=== PATIENT | male | born 1990 | race Two or more races ===

== ENCOUNTER 2018-06-09 08:52 | Inpatient (IN) | payer MEDICAID ==
[~2018-06-09] VITALS: Ht 188 cm; Wt 113.4 kg
[2018-06-09] MEDS ORDERED: HYDROMORPHONE INJ 2 MG/ML DISP.SYRIN ONE ×2 (08:58→11:02)
[2018-06-09] MEDS ORDERED: PROPOFOL 0 ML IV ONE (08:58)
[2018-06-09] MEDS ORDERED: HYDROMORPHONE INJ 0.5 MG/0.5 ML SYRINGE IV ONE ×2 (09:00→11:00)
[2018-06-09] MEDS ORDERED: PROPOFOL 200 MG/20 ML VIAL IV ONE (09:00)
--- NOTE | 2018-06-09 09:00 | NUR ---
IV ACCESS STARTED. BLOOD DRAWN FOR LABS. MEDICATED ORDERED.
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
--- NOTE | 2018-06-09 09:07 | NUR ---
NAVA AT BS.
--- NOTE | 2018-06-09 09:10 | NUR ---
AT TO DISCUSS TO PT ABOUT THE PROCEDURE. CONSENT SIGNED FOR CLOSED REDUCTION UNDER MODERATE SEDATION OF LEFT ANKLE. VERBALIZES UNDERSTANDING OF THE PROCEDURE. ALL QUESTIONS ANSWERED.
[2018-06-09] MEDS ORDERED: PROPOFOL 20 ML IV ONE (09:16)
--- NOTE | 2018-06-09 09:40 | NUR ---
NAVA AT BS.
--- NOTE | 2018-06-09 10:04 | NUR ---
PT PLACED ON O2 FOR MODERATE SEDATION. WAITED AT BED SIDE DURING PROCEDURE. PERFORMED PROCEDURE. PT STABLE. NO DISTRESS NOTED.
--- NOTE | 2018-06-09 10:12 | NUR ---
CALLED [facility] [phone] THANKS SAROJ
--- NOTE | 2018-06-09 11:05 | NUR ---
MEDICATED PT ORDERED
--- NOTE | 2018-06-09 11:06 | NUR ---
BRAD GONG CALLED FOR POSSIBLE TRAUMA TX,DR HART SPOKE WITH DR RICHARDS
[2018-06-09 11:49] LABS: BASOPHILS % (AUTO) 0.1 % (0.0-2.0); EOSINOPHILS % (AUTO) 0.5 % (0.0-6.0); HEMATOCRIT 42 % (39-51); HEMOGLOBIN 13.8 g/dL (13.5-17.5); LYMPHOCYTES # (AUTO) 2.4 /CMM (0.8-4.8); LYMPHOCYTES % (AUTO) 24.2 % (20.0-44.0); MEAN CORPUSCULAR HEMOGLOBIN 29 PG (26.0-33.0); MEAN CORPUSCULAR HGB CONC 33 g/dl (31.0-36.0); MEAN CORPUSCULAR VOLUME 86 fL (80-96); MONOCYTES # (AUTO) 0.6 /CMM (0.1-1.30); MONOCYTES % (AUTO) 6.2 % (2.0-12.0); NEUTROPHILS # (AUTO) 6.9 /CMM (1.8-8.9); PLATELET COUNT (AUTO) 251 /CMM (150-450); RDW COEFFICIENT OF VARIATION 12.3 (11.5-15.0); RED BLOOD CELL COUNT(AUTO) 4.84 MIL/uL (4.5-6.0); WHITE BLOOD COUNT (AUTO) 9.9 K/uL (4.3-11.0)
[2018-06-09 12:00] VITALS: BP 146/86
[2018-06-09 12:12] LABS: INR 0.95 (0.85-1.15)
--- NOTE | 2018-06-09 12:47 | NUR ---
REPORT GIVEN TO JAMES MALDONADO FOR MS ROOM 205-1.
[2018-06-09 13:00] VITALS: BP 146/86
[2018-06-09] MEDS ORDERED: hydrALAZINE HCL 25 MG TABLET PO PRN (13:00)
[2018-06-09] MEDS ORDERED: MAGNESIUM HYDROXIDE 30 ML UDC PO PRN (13:00)
[2018-06-09] MEDS ORDERED: MORPHINE SULFATE INJ 2 MG/ML DISP.SYRIN IV PRN (13:00)
[2018-06-09] MEDS ORDERED: Z GUARD REMEDY 2 OZ OINT TP PRN (13:00)
[2018-06-09] MEDS ORDERED: ENALAPRILAT INJ (1.25 MG/ML) 1.25 MG/ML VIAL IV PRN (13:00)
[2018-06-09] MEDS ORDERED: MAG HYDROX/AL HYDROX/SIMETH 30 ML UDC PO PRN (13:00)
[2018-06-09] MEDS ORDERED: ACETAMINOPHEN 325 MG TABLET PO PRN (13:00)
[2018-06-09] MEDS ORDERED: ONDANSETRON HCL/PF 4 MG/2 ML VIAL IVP PRN (13:00)
[2018-06-09] MEDS ORDERED: ZOLPIDEM TARTRATE 5 MG TABLET PO PRN (13:00)
--- NOTE | 2018-06-09 13:10 | NUR ---
RN NOTES/ADMISSION PT RECEIVED FROM ER VIA GURNEY, ASSISTED WITH TRANSFER TO BED. PT AWAKE ALERT AND VERBALLY RESPONSIVE, ABLE TO MAKE NEEDS KNOWN STATES PT LEVEL IS 2/10 AND TOLERABLE, WILL ADMINISTER PAIN MEDICATION ORDERED. RESPIRATIONS EVEN AND UNLABORED, IV ACCESS TO LAC PATENT AND INTACT NO REDNESS OR INFILTRATION NOTED. PT ORIENTED TO ROOM AND UNIT WITH NOTED VERBAL UNDERSTANDING. PT NPO EXCEPT MEDS AT THIS TIME FOR POSSIBLE SURGICAL PROCEDURE. SAFETY MEASURES IN PLACE, CALL LIGHT WITHIN EASY REACH WILL CONTINUE TO MONITOR. DR. MURRAY AWARE OF PT'S ARRIVAL, WILL CONTINUE TO CARRY OUT ADMITTING ORDERS
[2018-06-09 13:38] LABS: CALCIUM, SERUM 8.9 mg/dL (8.5-10.1); CREATININE 1.1 mg/dL (0.6-1.3); POTASSIUM 3.6 mmol/L (3.5-5.1)
[2018-06-09 13:44] LABS: BILIRUBIN,DIRECT 0.1 mg/dL (0.0-0.2); BILIRUBIN,TOTAL 0.4 mg/dL (0.2-1.0); TOTAL PROTEIN, SERUM 8.1 g/dL (6.4-8.2)
[2018-06-09] MEDS: HYDROCODONE/APAP 5/325MG 1 EACH TABLET PO PRN (14:31)
[2018-06-09] MEDS: IV D5/0.45 NACL 1,000 ML IV PRN (14:32)
--- NOTE | 2018-06-09 15:10 | NUR ---
RN NOTES/ORTHO FOLLOW UP PER YANNI BUENO PT TO HAVE POSSIBLE SURGICAL TOMORROW WILL AWAIT FURTHER ORDERS
--- NOTE | 2018-06-09 15:30 | NUR ---
RN NOTES NOTIFIED DR. MURRAY THAT SURGICAL PROCEDURE WONT BE UNTIL TOMORROW, PT OKAY TO HAVE MEALS, NPO POST MIDNIGHT, WILL CONTINUE TO MONITOR
[2018-06-09 16:00] VITALS: BP 138/84
--- NOTE | 2018-06-09 17:41 | NUR ---
RN NOTES PER PT, HAVING SEVERE PAIN NORCO AND MORPHINE ADMINISTERED PRN ORDERED, EXPLAINED PAIN MEDICATION ORDERS AND ADMINISTRATION WITH PT AND EDUCATION ON USE AND SIDE EFFECTS, MADE DR. MURRAY AWARE, WILL CONTINUE TO ADMINISTER MEDICATION AT APPROPRIATE PRN TIMES AND CONTINUE TO MONITOR, WILL AWAIT ANY FURTHER ORDERS
--- NOTE | 2018-06-09 18:20 | NUR ---
RN CLOSING NOTES PT AWAKE ALERT AND VERBALLY RESPONSIVE, PAIN MANAGEMENT CONTINUED, WILL ADMINISTER PAIN MEDICATION PRN ORDERED. RESPIRATIONS EVEN AND UNLABORED, IV ACCESS TO LAC 18 G PATENT AND INTACT NO REDNESS OR INFILTRATION NOTED IV FLUIDS ORDERED, TOLERATED WELL. PT ORIENTED TO ROOM AND UNIT WITH NOTED VERBAL UNDERSTANDING. PT TO BE NPO AFTER MIDNIGHT. SAFETY MEASURES IN PLACE, CALL LIGHT WITHIN EASY REACH WILL CONTINUE TO MONITOR AND ENDORSE TO NEXT SHIFT FOR CONTINUITY OF CARE
[2018-06-09] MEDS: MORPHINE SULFATE INJ 2 MG/ML DISP.SYRIN IV PRN ×2 (18:39→21:27)
--- NOTE | 2018-06-09 19:21 | NUR ---
MS/RN OPENING NOTES PATIENT IN BED, RESTING COMFORTABLY IN BED, FAMILY AT BEDSIDE, PAIN WAS GIVEN FEW MINUTES AGO, NO GRIMACE AND GUARDING OBSERVED, HAD DINNER BROUGHT BY FAMILY AND WILL BE PREPARING FOR SX SADE FOR FX OF LEFT ANKLE, SKIN WARM TO TOUCH, USES URINAL, CALL LIGHTS WITHIN REACH, DISCUSSED PLAN OF CARE. BED IN LOCK POSITION WILL MONITOR.
--- NOTE | 2018-06-09 19:30 | NUR ---
MS/RN NOTES RECEIVED UPDATE FROM MD GREER REGARDING PATIENT SURGERY AND NEED MD DONNA FOR EVALUATION OF THE ANKLE THAT IS SWOLLEN, PER MD FRACTURE IS COMPLICATED AND DO NOT NEED NPO ORDER AT THIS TIME.FAMILY MADE AWARE.
[2018-06-09 19:40] VITALS: BP 129/87
[2018-06-09 20:00] VITALS: BP 129/87
--- NOTE | 2018-06-09 21:28 | NUR ---
MS/RN NOTES PAIN REPORTED PAIN 10/10 IN LEFT FOOT/ANKLE, ALERT, ORIENTED X3, ABLE TO VERBALIZE NEEDS. OBSERVE GUARDING AND GRIMACE, IV PAIN MEDICATION MORPHINE 4MG/2ML TO ADMINISTER. WILL MONITOR EFFECTIVENESS.
[2018-06-10] MEDS: MORPHINE SULFATE INJ 2 MG/ML DISP.SYRIN IV PRN ×6 (01:46→23:22)
--- NOTE | 2018-06-10 01:56 | NUR ---
MS/RN NOTES PATIENT REQUESTED FOR PAIN MEDICATION, AWAKEN FROM SLEEP REPORTED PAIN ON LEFT ANKLE 9/10. PAIN MEDICATION ADMINISTERED VIA IV MORPHINE 2MG/ML, MONITOR PAIN EFFECTIVENESS AND RELIEF.
[2018-06-10] MEDS: IV D5/0.45 NACL 1,000 ML IV PRN (03:04)
--- NOTE | 2018-06-10 06:15 | NUR ---
MS/RN NOTES PATIENT AWAKEN FROM SLEEP AND REPORTED PAIN OF 9/10 ON HIS LEFT ANKLE, ASSIST WITH REPOSITION FOR COMFORT, PAIN MEDICATION IV MORPHINE 2MG/ML. WILL MONITOR.
[2018-06-10 06:18] LABS: BASOPHILS % (AUTO) 0.3 % (0.0-2.0); EOSINOPHILS % (AUTO) 0.2 % (0.0-6.0); HEMATOCRIT 40 % (39-51); HEMOGLOBIN 13.7 g/dL (13.5-17.5); LYMPHOCYTES # (AUTO) 2.3 /CMM (0.8-4.8); LYMPHOCYTES % (AUTO) 21.5 % (20.0-44.0); MEAN CORPUSCULAR HEMOGLOBIN 30 PG (26.0-33.0); MEAN CORPUSCULAR HGB CONC 34 g/dl (31.0-36.0); MEAN CORPUSCULAR VOLUME 88 fL (80-96); MONOCYTES # (AUTO) 0.7 /CMM (0.1-1.30); MONOCYTES % (AUTO) 6.8 % (2.0-12.0); NEUTROPHILS # (AUTO) 7.5 /CMM (1.8-8.9); NEUTROPHILS % (AUTO) 71.2 % (43.0-81.0); PLATELET COUNT (AUTO) 233 /CMM (150-450); RDW COEFFICIENT OF VARIATION 12.8 (11.5-15.0); RED BLOOD CELL COUNT(AUTO) 4.59 MIL/uL (4.5-6.0); WHITE BLOOD COUNT (AUTO) 10.6 K/uL (4.3-11.0)
[2018-06-10 06:45] LABS: CALCIUM, SERUM 8.6 mg/dL (8.5-10.1); CREATININE 0.7 mg/dL (0.6-1.3); MAGNESIUM 2.1 mg/dL (1.8-2.4); PHOSPHORUS 3.6 mg/dL (2.5-4.9); POTASSIUM 3.3 mmol/L (3.5-5.1)
--- NOTE | 2018-06-10 06:54 | NUR ---
205-2 MS/RN NOTES PATIENT ALERT, ORIENTED, ON PAIN MANAGMENT DUE TO FRACTURE ON LEFT ANKLE, KEEP COMFORTBALE, ABLE TO SLEEP INTERMITTENTLY , RESPIRATIONS EVEN AND UNLABORED, SKIN WARM TO TOUCH, VITAL SIGNS CHECK AND NOTED EVERY PAIN MEDICATION GIVEN, CALL LIGHTS WITHIN REACH, BED IN LOCK POSITION, WILL ENDORSE TO AM RN FOR NAT.
--- NOTE | 2018-06-10 07:15 | NUR ---
RN OPENING NOTES PT AWAKE ALERT AND VERBALLY RESPONSIVE, PAIN MANAGEMENT CONTINUED, WILL ADMINISTER PAIN MEDICATION PRN ORDERED. RESPIRATIONS EVEN AND UNLABORED, IV ACCESS TO LAC 18 G PATENT AND INTACT NO REDNESS OR INFILTRATION NOTED IV FLUIDS ORDERED, TOLERATED WELL. PT ORIENTED TO ROOM AND UNIT WITH NOTED VERBAL UNDERSTANDING. TO EVALUATE PT SAFETY MEASURES IN PLACE, CALL LIGHT WITHIN EASY REACH WILL CONTINUE TO MONITOR
[2018-06-10 08:00] VITALS: BP 136/77
[2018-06-10] MEDS ORDERED: POTASSIUM CHLORIDE 20 MEQ TAB.PRT.SR PO ONE (11:00)
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
[2018-06-10 16:00] VITALS: BP 135/79
--- NOTE | 2018-06-10 18:50 | NUR ---
RN CLOSING NOTES PT AWAKE ALERT AND VERBALLY RESPONSIVE, PAIN MANAGEMENT CONTINUED, WILL ADMINISTER PAIN MEDICATION PRN ORDERED. RESPIRATIONS EVEN AND UNLABORED, IV ACCESS TO LAC 18 G PATENT AND INTACT SL NO REDNESS OR INFILTRATION NOTED. PT ORIENTED TO ROOM AND UNIT WITH NOTED VERBAL UNDERSTANDING.PER PT NEEDS TO HAVE REDUCED SWELLING OF LEG PRIOR TO SURGICAL INTERVENTION, PT AWARE, LLE ELEVATED ON PILLOW, ICED AND PRN PAIN MEDICATION FOR PAIN RELIEF. SAFETY MEASURES IN PLACE, CALL LIGHT WITHIN EASY REACH WILL CONTINUE TO MONITOR AND ENDORSED TO NEXT SHIFT FOR CONTINUITY OF CARE
--- NOTE | 2018-06-10 19:30 | NUR ---
MS RN NOTES RECEIVED ON BED A/O X4,BREATHING NORMAL.VISITOR AT BEDSIDE.SALINE LOCK LEFT AC INTACT AND PATENT.S/P LEFT ANKLE CLOSED REDUCTION IN ER,SPLINT IN USED WRAPPED WITH BROWN ELASTIC BANDAGE.DENIES PAIN AT THE MOMENT.CALL LIGHT IN REACH,NEEDS ANTICIPATED.
[2018-06-10 20:00] VITALS: BP 150/87
--- NOTE | 2018-06-10 23:22 | NUR ---
MS RN NOTES PAIN MANAGEMENT C/O PAIN VIA LEFT ANKLE 10/10 ON PAIN SCALE.MEDICATED WITH MORPHINE 4MG IV ORDERED.ELEVATE LEFT LEG ON PILLOWS.
[2018-06-11] MEDS: MORPHINE SULFATE INJ 2 MG/ML DISP.SYRIN IV PRN (02:26)
--- NOTE | 2018-06-11 02:26 | NUR ---
MS RN NOTES PAIN MANAGEMENT C/O PAIN ON LEFT LOWER LEG,MEDICATED WITH MORPHINE 4MG IP ORDERED
--- NOTE | 2018-06-11 03:00 | NUR ---
MS RN NOTES SOUND ASLEEP,PT WARM AND COMFORTABLE.
[2018-06-11] MEDS: HYDROCODONE/APAP 5/325MG 1 EACH TABLET PO PRN ×2 (05:13→13:09)
--- NOTE | 2018-06-11 05:13 | NUR ---
MS RN NOTES PAIN MANAGEMENT AWAKE,C/O LEFT ANK;E PAIN 6/10 ON PAIN SCALE,NORCO 5/325MG,1 TAB PO GIVEN PER PATIENT REQUEST.
[2018-06-11] MEDS ORDERED: MORPHINE SULFATE INJ 4 MG/ML DISP.SYRIN IV PRN (07:00)
--- NOTE | 2018-06-11 07:29 | NUR ---
MS RN NOTES FAIRLY RESTED AT NIGHT,LEFT LOWER LEG KEPT ELEVATED ON PILLOWS.NON WEIGHT BEARING LEFT LOWER LEG,SALINE LOCK LEFT AC INTACT ,PATENT.IN NO ACUTE DISTRESS.ENDORSED TO ONEYDA MALDONADO STABLE CONDITION.
--- NOTE | 2018-06-11 07:30 | NUR ---
MS RN OPENING NOTES PATIENT RECEIVED IN BED AWAKE, ALERT AND ORIENTED 4. VERBALLY RESPONSIVE WITH C/O PAIN ON LEFT ANKLE WITH PAIN SCALE OF 10/10, PRN MORPHINE SULFATE 4MG/1ML IVP ADMINISTERED ORDERED. ON ROOM AIR, RESPIRATIONS EVEN AND UNLABORED. IV ACCESS ON LAC G#18 PATENT AND INTACT, FLUSHES WELL. SAFETY MEASURES IN PLACE. BED IN LOW/LOCKED POSITION. CALL LIGHT WITHIN EASY REACH. WILL CONTINUE TO MONITOR
[2018-06-11 08:00] VITALS: BP 141/88
[2018-06-11] MEDS: HYDROMORPHONE INJ 2 MG/ML DISP.SYRIN IV PRN ×2 (11:16→16:36)
--- NOTE | 2018-06-11 11:21 | NUR ---
RN NOTES PT SEEN AND EVALUATED BY DR NOLAN. MORPHINE SULFATE 4MG IV D/C'D AND CHANGED TO DILAUDID 1MG/0.5ML Q4HRS PRN. PATIENT C/O PAIN ON HIS LEFT ANKLE, 10/10 SCALE. PRN DILAUDID 1MG/0.5ML IVP ADMINISTERED. WILL CONTINUE TO MONITOR.
--- NOTE | 2018-06-11 13:10 | NUR ---
ERICA NOTES PT C/O PAIN ON LEFT KNEE, 7/10 SCALE, PRN NAHUN 5/325 TAB GIVEN AT 1405 ORDERED. WILL CONTINUE TO MONITOR Addendum: 06/11/18 at 1323 by ABRAM COE RN ERROR: NORCO NOT ADMINISTERED AT 1405 BUT 1305.
--- NOTE | 2018-06-11 13:21 | NUR ---
RN NOTES PATIENT FOR LEFT ANKLE OPEN REDUCTION INTERNAL FIXATION TOMORROW, 06/12/2018. EXPLAINED PROCEDURE TO PT AND VERBALIZED UNDERSTANDING. ALL REQUIRED CONSENTS SIGNED AND FILED ON CHART.
--- NOTE | 2018-06-11 13:45 | NUR ---
RN NOTES RECEIVED A CALL FROM WATCH GUARD GATE LUIS ENRIQUE OF [facility] AND INFORMED THAT PT WILL BE TRANSFERRED TO [facility], HE SAID THAT HE TALKED TO OUR SANDY CORRAL ALREADY. I CALLED AND VERIFIED TO SANDY CORRAL AND SAID YES, THE PT WILL BE TRANSFERRED TO [facility], SHE ALSO WENT AND SPOKE TO PT REGARDING THE TRANSFERRED AND PT VERBALIZED UNDERSTANDING. SANDY CORRAL WILL CALL OR LET ME KNOW ONCE EVERY THING IS FINALIZED.
[2018-06-11 16:00] VITALS: BP 129/85
--- NOTE | 2018-06-11 16:40 | NUR ---
RN NOTES/ PAIN MANAGEMENT PATIENT CALLED AND COMPLAINTS OF PAIN ON HIS LEFT ANKLE WITH PAIN SCALE OF 10/10. PRN DILAUDID 1MG/0.5ML IVP ADMINISTERED AT 1636. WILL CONTINUE TO MONITOR.
--- NOTE | 2018-06-11 17:21 | NUR ---
RN NOTES CALLED AND ASKED MAINTENANCE HELPER ELLIS ON THE STATUS OF PT TRANSFER TO [facility]. SHE SAID THAT NO BED AVAILABLE AT THIS TIME, SHE SAID THAT SHE WILL CALL AND FOLLOW-UP THE HOSPITAL.
--- NOTE | 2018-06-11 17:32 | NUR ---
RN NOTES RECEIVED CALL FROM SANDY CORRAL AND SAID THAT PT WILL BE TRANSFERRED PROBABLY TONIGHT WHEN BED IS AVAILABLE AT [facility]. CALL MD FOR DISCHARGE ORDER SOON BED IS AVAILABLE. WILL ENDORSE.
--- NOTE | 2018-06-11 18:22 | NUR ---
RN NOTES INFORMED DR LIAO REGARDING PT'S PROBABLE TRANSFER TONIGHT TO [facility] ONCE BED IS AVAILABLE.
--- NOTE | 2018-06-11 18:31 | NUR ---
MS RN CLOSING NOTES PATIENT IN BED WITH AT BEDSIDE. A/O X4, SAME ABLE TO MAKE NEEDS AND CONCERNS KNOWN. PT IS NWB ON LLE. ALL NEEDS AND CARE ATTENDED WELL. PT ON ROOM AIR, RESPIRATIONS EVEN WITH NO SOB NOTED. IV ACCESS ON LAC G#18 PATENT AND INTACT, FLUSHES WELL. ALL SAFETY MEASURES KEPT IN PLACE. BED IN LOW/LOCKED POSITION. CALL LIGHT AND BEDSIDE TABLE PLACED WITHIN EASY REACH OF PT. WILL ENDORSE TO ROTOR BALANCER NURSE FOR NAT.
--- NOTE | 2018-06-11 19:30 | NUR ---
MS RN NOTES RECEIVED RESTING COMFORTABLY ON BED A/O X4,SPLINT INTACT ON LEFT LOWER LEG,PAIN TOLERABLE.SALINE LOCK LEFT AC INTACT AND PATENT.AWAITING TRANSPORT GOING TO [facility].
--- NOTE | 2018-06-11 19:50 | NUR ---
MS RN NOTES REPORT GIVEN TO JUAN C MALDONADO AT [facility].PATIENT GOING TO ROOM 204-B
--- NOTE | 2018-06-11 20:15 | NUR ---
MS RN NOTES CONTINGENTS SUPERVISOR BY AMBULANCE AT THIS TIME IN STABLE CONDITION
== END 2018-06-11 20:30 | disposition short-term general hospital (02) | DRG 342 ==
LOC: ER 08:54 → MEDSG2 12:37
PROVIDERS: ADMIT Internal Medicine; ATTEND Internal Medicine
DX: S82.852A Displaced trimalleolar fracture of left lower leg, initial encounter for closed fracture (principal); E66.9 Obesity, unspecified; W13.4XXA Fall from, out of or through window, initial encounter; Y93.39 Activity, other involving climbing, rappelling and jumping off; Y92.9 Unspecified place or not applicable; Z68.30 Body mass index [BMI] 30.0-30.9, adult; K21.9 Gastro-esophageal reflux disease without esophagitis
CPT/HCPCS: 36415; 71045-TC; 73600-TC; 73610-TC; 73700-TC; 80048-TC; 80076-TC; 83735-TC; 84100-TC; 85025-TC; 85730-TC; 87081-TC; A4606; J1170; J2270; J2704; J3490; Z7610